=== PATIENT | female | born 1940 | race Caucasian/White ===

== ENCOUNTER 2018-11-02 13:58 | Emergency (ER) | payer OTHER, MEDICARE ==
[~2018-11-02] VITALS: Ht 154.9 cm; Wt 50.1 kg
[2018-11-02 15:18] LABS: HEMATOCRIT 40.7 % (37.0-47.0); HEMOGLOBIN 13.3 g/dl (12.0-16.0); IMMATURE GRANULOCYTES 0.6 % (0.0-5.0); MEAN CELL VOLUME 95.8 fL CALC (80.0-100.0); MEAN CORPUSCULAR HGB 31.3 pG CALC (26.0-32.0); MEAN CORPUSCULAR HGB CONC 32.7 g/L CALC (32.0-36.0); NEUT# 5.86 thou/uL (2.00-7.15); RED BLOOD COUNT 4.25 mill/uL (4.20-5.60); RED CELL DISTRI WIDTH 13.9 % (11.5-15.5)
[2018-11-02 15:36] LABS: ALBUMIN 3.8 g/dL (3.2-5.0); ALKALINE PHOSPHATASE 56 u/l (38-126); ANION GAP 12 (6-22 (CALC)); BILIRUBIN, TOTAL 0.4 mg/dL (0.0-1.4); BUN 16 mg/dL (8-23); BUN/CREATININE RATIO 28 (12-20 (CALC)); CARBON DIOXIDE 27 mmol/l (22-30); CHLORIDE 104 mmol/l (95-108); CREATININE 0.6 mg/dL (0.5-1.0); GFR > 60 ML/MIN (>=60 (CALC)); GFR FOR AFR.AMER. > 60 ML/MIN (>=60 (CALC)); POTASSIUM 4.7 mmol/l (3.5-5.1); SGOT/AST 25 u/l (9-36); SODIUM 138 mmol/l (137-146); TOTAL PROTEIN 6.5 g/dL (6.3-8.2)
[2018-11-02] MEDS ORDERED: TORADOL PO (15:58)
[2018-11-02] MEDS ORDERED: FLEXERIL PO (15:58)
[2018-11-02] MEDS ORDERED: METOPROL TAR25 MG PO (16:04)
[2018-11-02] MEDS ORDERED: EVISTA60 MG PO (16:04)
[2018-11-02] MEDS ORDERED: CENTRUM PO (16:05)
[2018-11-02] MEDS ORDERED: CALCIUM600 M1 PO (16:05)
[2018-11-02] MEDS ORDERED: ASPIRIN81 MG PO (16:07)
[2018-11-02] MEDS ORDERED: COSAMIN DS1 CA1 PO (16:07)
[2018-11-02 16:51] VITALS: BP 153/62
== END 2018-11-02 16:51 | disposition home or self-care (01) | DRG 605 ==
LOC: ED 13:58
PROVIDERS: Emergency Medicine
DX: S20.219A Contusion of unspecified front wall of thorax, initial encounter (principal); R06.02 Shortness of breath; R42 Dizziness and giddiness; V48.6XXA Car passenger injured in noncollision transport accident in traffic accident, initial encounter; Y92.414 Local residential or business street as the place of occurrence of the external cause; Y93.I9 Activity, other involving external motion